=== PATIENT | male | born 1990 | race African-American/Black ===

== ENCOUNTER 2017-07-27 17:29 | Emergency (ER) | payer OTHER ==
[~2017-07-27] VITALS: Ht 170.2 cm; Wt 81.0 kg
[2017-07-27 17:34] VITALS: Ht 170.2 cm; Wt 81.0 kg
[2017-07-27] MEDS ORDERED: IBUP-1542 PO (19:34)
[2017-07-27] MEDS ORDERED: CYCL-319 PO (19:34)
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
[2017-07-27 19:52] VITALS: BP 127/77; PULSE 74; RESP 16; TEMP 98
== END 2017-07-27 19:53 | disposition home or self-care (01) ==
LOC: FTE 17:29
DX: S19.9XXA Unspecified injury of neck, initial encounter (principal); S39.92XA Unspecified injury of lower back, initial encounter; V43.52XA Car driver injured in collision with other type car in traffic accident, initial encounter
CPT/HCPCS: 99283